=== PATIENT | male | born 1960 | race Caucasian/White ===

== ENCOUNTER 2022-06-08 13:22 | Observation (INO) ==
[2022-06-08] MEDS ORDERED: MORPHINE 2 MG/1 ML SYRINGE IV STA (13:50)
[2022-06-08] MEDS ORDERED: NITROGLYCERIN 2% OINT 1 INCH/GM PACK TOP STA (13:50)
[2022-06-08] MEDS ORDERED: ONDANSETRON 4 MG/2 ML VIAL IV STA (13:50)
[2022-06-08] MEDS ORDERED: ASPIRIN 325 MG TABLET PO STA (13:50)
[2022-06-08] MEDS ORDERED: FUROSEMIDE 40 MG/4 ML VIAL IV STA (13:51)
[2022-06-08 14:38] LABS: Alanine Aminotransferase 50 U/L (16-61); Albumin 3.4 G/DL (3.4-5.0); Alkaline Phosphatase 81 U/L (45-117); Aspartate Amino Transferase 26 U/L (0-37); Bilirubin,Total < 0.39 MG/DL (0.20-1.00); Blood Urea Nitrogen 20 MG/DL (7-18); Calcium 9.2 MG/DL (8.5-10.1); Carbon Dioxide 26 MMOL/L (21-32); Chloride 105 MMOL/L (98-107); Glucose 221 MG/DL (74-106); Osmolality,Calculated 286.5 MOS/KG (273-304); Potassium 3.8 MMOL/L (3.5-5.1); Sodium 139 MMOL/L (136-145); Total Protein 6.6 G/DL (6.4-8.2)
[2022-06-08 15:40] LABS: Basophils # 0.1 10*3/uL (0.0-0.2); Basophils % 0.4 % (0.0-0.8); Eosinophils # 0.2 10*3/uL (0.0-0.87); Eosinophils % 1.8 % (0.00-10.9); Hematocrit 34.6 VOL% (42.0-52.0); Hemoglobin 10.8 GM/DL (14.0-18.0); Immature Granulocytes % 1.1 %; Immature Granulocytes Absolute 0.13 #; Lymphocytes # 2.6 10*3/uL (1.4-4.0); Lymphocytes % 22.5 % (21.2-54.2); Mean Corpuscular HGB Conc 31.2 GM/DL (32-36); Mean Corpuscular Volume 84.2 FL (87-102); Monocytes # 0.8 10*3/uL (0.11-0.8); Monocytes % 6.7 % (1.7-12.7); Neutrophils % 67.5 % (38.7-73.9); Platelet Count 188 T/CUMM (130-400); Red Blood Count 4.11 MC/CUMM (3.8-5.5); Red Cell Distribution Width 17.7 % (9.3-17.3); White Blood Count 11.4 T/CUMM (4-12)
[2022-06-08] MEDS ORDERED: DEXTROSE 10% 250 ML BAG IV PRN (17:08)
[2022-06-08] MEDS ORDERED: ONDANSETRON 4 MG/2 ML VIAL IV PRN (17:08)
[2022-06-08] MEDS ORDERED: ACETAMINOPHEN 325 MG TABLET PO PRN (17:08)
[2022-06-08] MEDS ORDERED: GLUCAGON 1 MG VIAL IM PRN (17:08)
[2022-06-08] MEDS ORDERED: ALBUTEROL/IPRATROPIUM 3 ML NEB RESP TX PRN (17:08)
[2022-06-08] MEDS ORDERED: hydrALAZINE 20 MG/1 ML VIAL IV PRN (17:08)
[2022-06-08] MEDS: ENOXAPARIN 40 MG/0.4 ML SYRINGE SUBCUT SCH (20:32)
[2022-06-08] MEDS: DOCUSATE SODIUM 100 MG CAPSULE PO SCH (20:32)
[2022-06-09 04:29] LABS: Basophils # 0.1 10*3/uL (0.0-0.2); Basophils % 0.5 % (0.0-0.8); Eosinophils # 0.3 10*3/uL (0.0-0.87); Eosinophils % 2.4 % (0.00-10.9); Hematocrit 36.2 VOL% (42.0-52.0); Hemoglobin 11.3 GM/DL (14.0-18.0); Immature Granulocytes Absolute 0.11 #; Lymphocytes # 2.7 10*3/uL (1.4-4.0); Lymphocytes % 24.2 % (21.2-54.2); Mean Corpuscular HGB Conc 31.2 GM/DL (32-36); Mean Corpuscular Volume 83.8 FL (87-102); Mean Platelet Volume 11.3 FL (9.6-12.0); Monocytes # 0.8 10*3/uL (0.11-0.8); Monocytes % 7.3 % (1.7-12.7); Neutrophils % 64.6 % (38.7-73.9); Platelet Count 196 T/CUMM (130-400); Red Blood Count 4.32 MC/CUMM (3.8-5.5); Red Cell Distribution Width 17.8 % (9.3-17.3); White Blood Count 11.1 T/CUMM (4-12)
[2022-06-09 05:04] LABS: Calcium 9.1 MG/DL (8.5-10.1); Osmolality,Calculated 282.5 MOS/KG (273-304); Potassium 3.8 MMOL/L (3.5-5.1); Risk Ratio 7.79; Thyroid Stimulating Hormone 95.5 uIU/ml (0.358-3.74); VLDL Cholesterol 108.6 MG/DL
[2022-06-09] MEDS ORDERED: DEXTROSE 10% 250 ML BAG IV PRN (07:47)
[2022-06-09 08:34] LABS: Mucus,Urine Occasional /LPF (Occasional); RBC,Urine 1 /HPF (0-4); Squamous Epithelial Cell,Urine Occasional /HPF (0-10)
[2022-06-09 08:35] LABS: Bilirubin,Urine Negative (Negative); Blood, Urine Negative (Negative); Glucose,Urine (UA) Negative (Negative); Ketones,Urine Negative (Negative); Nitrite,Urine Negative (Negative); Protein,Urine Negative (Negative); Urine Appearance Clear (Clear); Urine Color Yellow (Yellow); Urine Specific Gravity >= 1.030 (1.001-1.035); Urine pH 5.5 (4.5-8.0)
[2022-06-09 08:36] LABS: Urine Urobilinogen 0.2 eU/dL (<2.0)
[2022-06-09 08:50] LABS: Barbiturates Screen,Urine Negative (Negative); Benzodiazepines Screen,Urine Negative (Negative); Cannabinoid Screen,Urine Negative (Negative); Opiate Screen,Urine Positive (Negative); Phencyclidine Screen,Urine Negative (Negative)
[2022-06-09] MEDS: ESCITALOPRAM 10 MG TABLET PO SCH (09:35)
[2022-06-09] MEDS: ISOSORBIDE MONONITRATE 60 MG TABLET PO SCH (09:35)
[2022-06-09] MEDS: POTASSIUM CHLORIDE 20 MEQ TABLET PO SCH (09:35)
[2022-06-09] MEDS: PANTOPRAZOLE 40 MG TABLET PO SCH (09:36)
[2022-06-09] MEDS: ASPIRIN EC 81 MG TABLET PO SCH (09:36)
[2022-06-09] MEDS: DOCUSATE SODIUM 100 MG CAPSULE PO SCH ×2 (09:36→22:03)
[2022-06-09] MEDS: METOPROLOL SUCCINATE XL 25 MG TABLET PO SCH (09:36)
[2022-06-09] MEDS: FERROUS SULFATE 325 MG TABLET PO SCH ×2 (09:36→21:54)
[2022-06-09] MEDS: NICOTINE 21 MG/24 HR PATCH TRANSDERM SCH (09:37)
[2022-06-09] MEDS: LEVOTHYROXINE 150 MCG TABLET PO SCH (09:39)
[2022-06-09] MEDS: INSULIN LISPRO 100 UNIT/ML SUBCUT SCH ×3 (11:50→22:04)
[2022-06-09] MEDS ORDERED: MIRTAZAPINE 15 MG TABLET PO SCH (21:00)
[2022-06-09] MEDS ORDERED: ATORVASTATIN 40 MG TABLET PO SCH ×2 (21:00)
[2022-06-09] MEDS: ENOXAPARIN 40 MG/0.4 ML SYRINGE SUBCUT SCH (22:04)
[2022-06-10] MEDS: LEVOTHYROXINE 150 MCG TABLET PO SCH (06:42)
[2022-06-10] MEDS ORDERED: methylPREDNISolone SOD SUC 40 MG/1 ML VIAL IV SCH (08:00)
[2022-06-10 08:27] VITALS: BP 127/73
[2022-06-10] MEDS ORDERED: FUROSEMIDE 40 MG/4 ML VIAL IV SCH (09:00)
[2022-06-10 09:10] LABS: Calcium 9.2 MG/DL (8.5-10.1); Osmolality,Calculated 280.7 MOS/KG (273-304); Potassium 3.9 MMOL/L (3.5-5.1)
[2022-06-10] MEDS: INSULIN LISPRO 100 UNIT/ML SUBCUT SCH (09:15)
[2022-06-10] MEDS: ASPIRIN EC 81 MG TABLET PO SCH (09:53)
[2022-06-10] MEDS: ISOSORBIDE MONONITRATE 60 MG TABLET PO SCH (09:54)
[2022-06-10] MEDS: FERROUS SULFATE 325 MG TABLET PO SCH (09:54)
[2022-06-10] MEDS: ESCITALOPRAM 10 MG TABLET PO SCH (09:54)
[2022-06-10] MEDS: POTASSIUM CHLORIDE 20 MEQ TABLET PO SCH (09:54)
[2022-06-10] MEDS: NICOTINE 21 MG/24 HR PATCH TRANSDERM SCH (09:54)
[2022-06-10] MEDS: PANTOPRAZOLE 40 MG TABLET PO SCH (09:54)
[2022-06-10] MEDS: DOCUSATE SODIUM 100 MG CAPSULE PO SCH (09:54)
[2022-06-10] MEDS: METOPROLOL SUCCINATE XL 25 MG TABLET PO SCH (09:55)
== END 2022-06-10 11:15 | disposition home or self-care (01) ==
LOC: N.EDINP 13:22 → N.ED 13:22 → N.2W 17:36 → N.TELEN 06-09 17:00
PROVIDERS: ADMIT Emergency Medicine; ATTEND Emergency Medicine